=== PATIENT | male | born 1955 | race Caucasian/White ===

== ENCOUNTER 2025-02-09 19:46 | Emergency (ER) | payer MEDICARE, SELFPAY ==
--- NOTE | ~2025-02-09 | CT_ITS ---
CT cervical spine wo con Ordering provider: Tari De Santiago MD History: . fall . Comparison: None. Technique: CT of the cervical spine was performed without contrast. Sagittal and coronal reformatted images were also obtained and reviewed. Automated exposure control and iterative reconstruction da hnique were employed. The dose-length product was 476.08 mGy-cm. FINDINGS: VERTEBRAE: No subluxation or acute fracture. The occipital condyles are intact. Degenerative changes of the spine. DISC SPACES: Narrowing of the disc C6-C7. Multilevel facet joint disease. Multilevel uncovertebral christel int osteoarthritic changes. Multilevel intervertebral foraminal narrowing. PARASPINOUS SOFT TISSUES: Bilateral carotid atherosclerotic changes. IMPRESSION: No acute osseous abnormality cervical spine. Degenerative disc disease at the level of C6-C7. Reviewed, dictated and finalized at location A.
--- NOTE | ~2025-02-09 | CT_ITS ---
CT brain wo con Ordering provider: Tari De Santiago MD History: 69 years Male with . fall . Comparison: None. Technique: CT of the head without contrast. Radiation reduction technique utilized.The dose-length product was 983.6-7 mGy-cm. FINDINGS: BRAIN PARENCHYMA AND CSF SPACES: Mild leukoaraiosis and diffuse cortical atrophy. Mild atheromatous d isease. No midline shift, mass effect or hemorrhage. The brain parenchyma and CSF spaces are otherwi se normal. VISUALIZED PARANASAL SINUSES: Bilateral maxillary sinus disease. Well aerated. MASTOIDS: Well aerated. BONES: The bones appear intact. SOFT TISSUES: Visualized nasopharynx is normal. Superficial soft tissues are normal. IMPRESSION: No acute intracranial findings. Reviewed, dictated and finalized at location A.
[2025-02-09 19:51] VITALS: BP 99/65; PULSE 66; RESP 18; O2SAT 97
--- NOTE | 2025-02-09 19:51 | ECG_ITS ---
Test Date: 2025-02-09 20:02:28 Measurements Intervals Manning Rate: 62 P: 28 NC: 197 QRS: -88 QRSD: 173 T: 35 QT: 454 QTc: 462 Interpretive Statements SINUS RHYTHM LEFT AXIS DEVIATION [QRS AXIS < -30] RIGHT BUNDLE BRANCH BLOCK [120+ ms QRS DURATION, UPRIGHT V1, 40+ ms S IN I/aVL/V4/V5/V6] PROBABLE SEPTAL MYOCARDIAL INFARCTION , PROBABLY OLD [35 ms Q WAVE IN V1/V2] No previous ECG available for comparison Electronically Signed On 02-10-2025 10:08:43 CDT by Chucky Oneill M.D.
[2025-02-09 19:55] VITALS: TEMP 36.1
[2025-02-09 20:16] VITALS: BP 101/70
--- NOTE | 2025-02-09 20:20 | PC.NURSE ---
Patient very eager to leave the ER. Discussed at length the need for imaging and to monitor his BP. Patient is impatient and reluctant to cooperate with treatment. Pt is on bed alarm and already attempted to exit his bed.
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
[2025-02-09 20:37] VITALS: BP 118/65
--- OUTSIDE RECORDS SUMMARY | 2025-02-09 20:43 | XMS_ITS | Clinical Summary ---
Author Organization [facility] [place] [address] [facility] [place] [address] Care Team Providers Care Guidance Director Name Role Phone Hari Yeboah MD Primary Care Provider [phone] Allergies No known active allergies Medications amLODIPine (NORVASC) 10 mg tablet amlodipine 10 mg tablet TAKE 1 TABLET BY MOUTH ONCE DAILY Active busPIRone (BUSPAR) 10 mg tablet buspirone 10 mg tablet TAKE 1 TABLET BY MOUTH TWICE DAILY NEEDED Active fenofibrate nanocrystallized (TRICOR) 145 mg tablet fenofibrate nanocrystallized 145 mg tablet TAKE 1 TABLET BY MOUTH ONCE DAILY DIRECTED Active fluticasone propionate (FLONASE) 50 mcg/actuation nasal spray daily Active metoprolol XL (TOPROL-XL) 100 mg 24 hr tablet metoprolol succinate ER 100 mg tablet,extended release 24 hr TAKE 1 TABLET BY MOUTH ONCE DAILY Active rosuvastatin (CRESTOR) 40 mg tablet rosuvastatin 40 mg tablet TAKE 1 TABLET BY MOUTH ONCE DAILY Active azithromycin (ZITHROMAX) 250 mg tablet Take 2 tabs (500 mg) by mouth today, than 1 tab (250 mg) daily for 4 days. 6 tablet 022 Active Active Problems Problem Noted Date Diagnosed Date Smoker 08/10/2022 Sinusitis 08/10/2022 Polyp of colon 08/10/2022 Hyperlipidemia 08/10/2022 Essential hypertension 08/10/2022 Alcohol abuse 08/10/2022 Expiratory wheezing 05/07/2022 Anxiety 05/07/2022 Allergic rhinitis 05/07/2022 Hypertriglyceridemia 02/27/2021 Erectile dysfunction 02/27/2021 Immunizations Immunization Administration Dates Next Due Pneumococcal Conjugate PCV 13 05/07/2022 Social History Tobacco Use Types Packs/Day Years Used Date Smoking Tobacco: Every Day Cigarettes Smokeless Tobacco: Never Tobacco Cessation:Ready to Q uit: Not Asked; Counseling Given: Not Answered Personal Safety Answer Date Recorded Getting School Help Needed Not on file 09/25 Sex and Gender Information Value Date Recorded Sex Assigned at Not on file Legal Sex 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 Gender Identity Not on file Sexual Orientation Not on file Obstetrics History Last Filed Vital Signs Vital Sign Reading Time Taken Comments Blood Pressure 168/83 08/10/2022 2:17 PM ADMINISTRATION INTERN Pulse 95 08/10/2022 2:17 PM ADMINISTRATION INTERN Temperature 37.9 C (100.2 F) 08/10/2022 2:17 PM ADMINISTRATION INTERN Respiratory Rate 16 08/10/2022 2:17 PM ADMINISTRATION INTERN Oxygen Saturation 95% 08/10/2022 2:17 PM ADMINISTRATION INTERN Inhaled Oxygen Concentration - - Weight 87.9 kg (193 lb 12.8 oz) 08/10/2022 2:17 PM ADMINISTRATION INTERN Height - - Body Mass Index - - Plan of Treatment Health Maintenance Due Date Last Done Comments Colon Cancer Screening-Colonoscopy 1957 Depression Screening 1957 Fall Risk Assessment 1957 Hepatitis C Screening 1957 Prostate Cancer Screening-PSA 1957 DTaP/Tdap/Td Vaccine (1 - Tdap) 1968 Hepatitis B Screening 1975 Zoster Vaccine (1 of 2) 2007 Abdominal Aortic Aneurysm (A AA) Screen 2022 Well Visit 65+ 2022 Pneumococcal vaccine 65+ (2 of 2 - PPSV23) 07/02/2022 05/07/2022 Covid-19 Vaccine ( season) 2024 09/15/2021, 12/19/2020, 11/28/2020 Influenza Vaccine (Season Ended) 2025 Insurance [address] [place] [id number] [facility] H[facility] REF Care Teams Guidance Director Relationship Specialty Start Date End Date Hari Yeboah MD PCP - General Internal Medicine 08/10/22
--- OUTSIDE RECORDS SUMMARY | 2025-02-09 20:43 | XMS_ITS | Referral Summary ---
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 Gender Identity Not on file Sexual Orientation Not on file Last Filed Vital Signs Vital Sign Reading Time Taken Comments Blood Pressure 168/83 08/10/2022 2:17 PM STATISTICAL METHODS PROFESSOR Pulse 95 08/10/2022 2:17 PM STATISTICAL METHODS PROFESSOR Temperature 37.9 C (100.2 F) 08/10/2022 2:17 PM STATISTICAL METHODS PROFESSOR Respiratory Rate 16 08/10/2022 2:17 PM STATISTICAL METHODS PROFESSOR Oxygen Saturation 95% 08/10/2022 2:17 PM STATISTICAL METHODS PROFESSOR Inhaled Oxygen Concentration - - Weight 87.9 kg (193 lb 12.8 oz) 08/10/2022 2:17 PM STATISTICAL METHODS PROFESSOR Height - - Body Mass Index - - Plan of Treatment Not on file [id number] H[address] REF 1941 [place] [id number] [facility] HMO REF Care Teams Refuse Collector Supervisor Relationship Specialty Start Date End Date Hari Yeboah MD PCP - General Internal Medicine 08/10/22
--- OUTSIDE RECORDS SUMMARY | 2025-02-09 20:44 | XMS_ITS | Data Portability ---
Author Organization [facility], Main Office Address [address] [place] [address] Assessment No assessment recorded. Plan of Treatment Reminders Order Date Submit Date Provider Last Modified By Organization Details Last Modified Time Details Appointments Any 15 2024 02:00P M Hari Yeboah MD Not available Not available Not available Lab CBC w/ auto diff 2024 025 [email or web address] [facility], Svet[address] Juan, [place], [address], 12/07/2024 12:28:58 lipid panel, serum 2024 025 ERIK [facility], [address]vetlana Juan, [place], [address], 12/07/2024 10:38:26 PSA, serum or plasma 2024 025 [email or web address] [facility], [address] Juan, [place], [address], 12/07/2024 12:29:06 CMP, serum or plasma 2024 025 [email or web address] [facility], [address]vetlana Juan, [place], [address], 12/07/2024 12:28:49 PSA, serum or plasma [address] (Lab), [address] [place], [address], 02/22/2023 08:08:34 CMP, serum or plasma [address] (Lab), [address] [place], [address], 02/22/2023 08:08:34 lipid panel, serum [address] (Lab), [address] [place], [address], 02/22/2023 08:08:34 Referral None recorded. Procedures None recorded. Surgeries None recorded. Imaging LDCT, chest, for lung cancer screening [email or web address] ([facility]), [address] [place], [address], 12/04/2024 17:55:39 LDCT, chest, for lung cancer screening [email or web address] [place] [address], [address] [place] [address] [address], [place], [address], 01/17/2024 09:20:35 LDCT, chest, for lung cancer screening [email or web address], [address] [place] [address] [address], [address], [place], [address], 02/22/2023 08:10:56 Medication Orders olmesarta n 40 mg-hydroc hlorothia zide 25 mg tablet 2024 025 [facility] [address], [address] [place], [address], 12/03/2024 15:53:33 sertralin e 50 mg tablet 2024 025 [facility] [address], [address] [place], [address], 12/03/2024 15:53:32 olmesarta n 20 mg tablet 2023 024 [facility] [address], [address], [place], [address], 01/09/2024 12:36:32 amlodipin e 10 mg tablet 2023 024 [facility] [address], [address], [place], [address], 01/09/2024 12:52:06 metoprolo l succinate ER 100 mg tablet,ex tended release 24 hr 2023 024 [facility] [address], [address], [place], [address], 01/09/2024 12:36:34 buspirone 10 mg tablet 2023 024 [facility] [address], [address], [place], [address], 01/09/2024 12:36:34 metoprolo l succinate ER 100 mg tablet,ex tended release 24 hr 2022 023 [facility] [address], [address], [place], [address], 01/17/2023 12:39:13 amlodipin e 10 mg tablet 2022 023 [facility] [address], [address], [place], [address], 01/17/2023 12:39:15 fenofibra te nanocryst allized 145 mg tablet 2022 023 [facility] [address], [address], [place], [address], 01/17/2023 12:39:12 rosuvasta tin 40 mg tablet 2022 023 [facility] [address], [address], [place], [address], 01/17/2023 12:39:13 Patient TargetsNo targets recorded. Patient InstructionsNo instructions recorded. Reason for Referral None Reported. Results Created Date Observation Date Name Description Value Unit Range Abnormal Flag Note LastModifiedBy Organization Detail LastModifiedTime 12/11/1912/08/2024 LDCT, chest , for lung cance r scree devaughn No observ ation record ed. [email or web address] [facility] (Imaging) [address], [place], [address], 12/13/2024 15:35:02 12/12/19 25 12/10/2024 LDCT, chest , for lung cance r scree devaughn No observ ation record ed. [facility] [address] [facility] [address], [place], [address], 12/11/2024 14:33:30 Result Notes None recorded. Problems Name Problem SNOMED Code Status Onset Date Resolution Date Notes Provider Name and Address Organization Details Recorded Time Skin lesion 50654839 Active 2022 Hari Yeboah MD [address] [facility] [address], [place], [address] , [employer] 3 12:40:42 Acute bronchitis 48058932 Completed Not Available [facility] 3 03:21:50 Harmful pattern of use of alcohol 28319497 Active Not Available [employer] 3 03:21:51 Adult health examinatio n Active 2020 Not Available [facility] 3 03:21:51 Hypertrigl yceridemia 759594874 Active 2020 Not Available [facility] 3 03:21:51 Sinusitis 58250520 Active Not Available [facility] 3 03:21:51 Anxiety 86296248 Active 2021 FLAVIA Best, [employer] 3 07:31:37 Hyperlipid emia 24513482 Active Not Available [facility] 3 03:21:51 Essential hypertensi on 97880561 Active Not Available [facility] 3 03:21:51 Allergic rhinitis 06896513 Active 2021 Rocio resendiz, RMA null, [place] test [employer] [facility] [employer] [facility] 3 07:31:34 Polyp of colon 09185171 Active Not Available [facility] 3 03:21:51 Smoker 65692290 Active Not Available [facility] 3 03:21:51 Erectile dysfunctio n 916832631 Active 2020 Not Available [facility] 3 03:21:51 Expiratory wheezing 7156582 Completed 202112/27/2022 Rocio resendiz, RMA null, [facility] [employer] [facility] 3 07:31:40 Acute sinusitis 08906034 Active 2023 Sheryl Henry LPN null, [facility] [employer] [facility] 4 14:11:44 Depressive disorder 33543875 Active 2024 Hari Yeboah MD [address], [address] , [facility] [employer] [facility] 5 15:52:48 Tremor 80099064 Active 2024 Hari Yeboah MD [address] [facility], [place] [address], [place], [address] , [facility] [employer] [facility] 5 15:55:58 Nicotine dependence 71940191 Active 2024 Susan Dave MA null, [facility] [employer] [facility] 5 17:54:36 Problem Notes None recorded. Procedures Surgical History Date Name Laterality Status Provider Name and Address Organization Details Recorded Time Orthopedic Surgery completed Not Available [facility] 11/17/2022 03:14:20 Imaging Results None recorded. Procedure Notes None recorded. Medical Equipment None Reported. Medications Name Sig Start Date Stop Date Status Note LastModified by Organization Details LastModified Time amoxicillin 500 mg capsule TAKE 1 CAPSULE BY MOUTH THREE TIMES DAILY 12/03 completed Not Available Not Available Not Available azithromyci n 250 mg tablet TAKE 2 TABLETS BY MOUTH ON DAY 1, AND THEN TAKE 1 TABLET BY MOUTH ONCE A DAY ON DAY 2 THROUGH DAY 5 01/17 completed Not Available Not Available Not Available Viagra 50 mg tablet Take 1 tablet as needed by oral route as needed. active Not Available Not Available No t Available metoprolol succinate ER 100 mg tablet,exte nded release 24 hr TAKE 1 TABLET BY MOUTH ONCE DAILY active Not Available Not Available No t Available amlodipine 10 mg tablet TAKE 1 TABLET BY MOUTH ONCE DAILY active Not Available Not Available No t Available gemfibrozil 600 mg tablet TAKE 1 TABLET BY MOUTH TWICE A DAY 07/19 completed Not Available Not Available Not Available Norvasc 5 mg tablet Take 1 tablet every day by oral route. 01/31 completed Not Available Not Available Not Available buspirone 10 mg tablet TAKE 1 TABLET BY MOUTH TWICE DAILY NEEDED active Not Available Not Available No t Available lisinopril 20 mg-hydrochl orothiazide 25 mg tablet Take 1 tablet twice a day by oral route. 12/29 completed Not Available Not Available Not Available furosemide 20 mg tablet Take 1 tablet every day by oral route in the morning. active Not Available Not Available No t Available levofloxaci n 500 mg tablet TAKE 1 TABLET BY MOUTH EVERY 24 HOURS FOR 7 DAYS 08/27 completed Not Available Not Available Not Available methylpredn isolone 4 mg tablets in a dose pack TAKE BY MOUTH DIRECTED ON INSIDE OF PACKAGE 08/27 completed Not Available Not Available Not Available albuterol sulfate HFA 90 mcg/actuati on aerosol inhaler Inhale 2 puffs every 4 hours by inhalatio n route for 30 days. 07/01 completed Not Available Not Available Not Available fluticasone propionate 50 mcg/actuati on nasal spray,suspe nsion [place] 2 sprays every day by intranasa l route. active Not Available Not Available No t Available sertraline 50 mg tablet TAKE 1 TABLET BY MOUTH ONCE DAILY active Not Available Not Available No t Available doxycycline hyclate 100 mg tablet TAKE 1 TABLET BY MOUTH TWICE A DAY 03/26 completed Not Available Not Available Not Available amoxicillin 875 mg-potassiu m clavulanate 125 mg tablet TAKE 1 TABLET BY MOUTH TWICE DAILY FOR 7 DAYS 01/17 completed Not Available Not Available Not Available olmesartan 20 mg tablet Take 1 tablet by mouth once daily active Not Available Not Available No t Available amlodipine 10 mg-benazepr il 20 mg capsule TAKE 1 CAPSULE BY MOUTH ONCE DAILY 06/18 completed Not Available Not Available Not Available olmesartan 40 mg-hydrochl orothiazide 25 mg tablet Take 1 tablet every day by oral route. 2024 active Not Available Not Available Not Avai lable rosuvastati n 40 mg tablet Take 1 tablet by mouth once daily 2024 active CHUY NOV ok to rf Not Available Not Available Not Available Chantix 1 mg tablet Take 1 tablet twice a day by oral route. 07/01 completed Not Available Not Available Not Available fenofibrate nanocrystal lized 145 mg tablet TAKE 1 TABLET BY MOUTH ONCE DAILY DIRECTED active Not Available Not Available No t Available Vitals Date Recorded Body weight Body mass index (BMI) Body height Body temperature Heart rate Oxygen saturation Oxygen saturation in Arterial blood by Pulse oximetry Systolic And Diastolic Provider Name and Address Organization Details Last Updated DateTime 5 52020 g 29.7 kg/m2 167.64 cm 97.6 [degF] 88 /min 94 % 94 % 162/84 mm[Hg] Rocio bernard [facility] [employer] [facility] 5 15:23:42 Date Recorded Body height Body mass index (BMI) Body weight Body temperature Heart rate Oxygen saturation Oxygen saturation in Arterial blood by Pulse oximetry Systolic And Diastolic Provider Name and Address Organization Details Last Updated DateTime 4 167.64 cm 31.3 kg/m2 45371.9 2 g 97.7 [degF] 94 /min 96 % 96 % 160/80 mm[Hg] Rocio bernard [facility] [employer] [facility] 4 12:09:14 Date Recorded Body height Body mass index (BMI) Body weight Body temperature Heart rate Oxygen saturation Oxygen saturation in Arterial blood by Pulse oximetry Systolic And Diastolic Provider Name and Address Organization Details Last Updated DateTime 3 167.64 cm 30.5 kg/m2 50460.9 6 g 98.2 [degF] 78 /min 97 % 97 % 122/80 mm[Hg] Yaimla Oliva [facility] [employer] [facility] 3 11:54:50 Date Recorded Body mass index (BMI) Body height Oxygen saturation Oxygen saturation in Arterial blood by Pulse oximetry Heart rate Body weight Systolic And Diastolic Provider Name and Address Organization Details Last Updated DateTime 2 30.5 kg/m2 167.64 cm 97 % 97 % 86 /min 87521.9 6 g 130/80 mm[Hg] Not Available [facility] 3 03:16:44 Date Recorded Body weight Body mass index (BMI) Body height Body temperature Heart rate Oxygen saturation Oxygen saturation in Arterial blood by Pulse oximetry Systolic And Diastolic Provider Name and Address Organization Details Last Updated DateTime 3 52705.7 4 g 31 kg/m2 167.64 cm 97.6 [degF] 79 /min 97 % 97 % 164/80 mm[Hg] FLAVIA Lowry [facility] 3 12:19:59 Social History Question Answer Notes LastModified by [employer] Details LastModified Time Tobacco Smoking Status Current Every Day Smoker 1-2 a day, vapes more Not Available [facility] 11/17/2022 03:02:41 Do You Have An Advance Directive? Yes [id number] Information not available 11/17/2022 What Is Your Level Of Caffeine Consumption? None [id number] Information not available 11/17/2022 How Much Tobacco Do You Chew? None [id number] Information not available 11/17/2022 What Type Of Diet Are You Following? REGULAR [id number] Information not available 11/17/2022 Which Illicit Or Recreational Drugs Have You Used? None [id number] 2012 Information not available 11/17/2022 What Was The Date Of Your Most Recent Tobacco Screening? 02/27/2021 [id number] Information not available 11/17/2022 At What Age Did You Start Smoking Tobacco? 24 [id number] Information not available 11/17/2022 How Much Tobacco Do You Smoke? 1 PPW MIGRATION.[id number] 8423 Information not available 11/17/2022 Do You Use Sunscreen Routinely? No [id number] Information not available 11/17/2022 Sex: Male Functional Status Question Answer Note LastModified by [employer] Details LastModified Time What is your level of alcohol consumption? Occasional 2-3 beers per day [id number] Information not available 11/17/2022 Do you or have you ever used smokeless tobacco? Never used smokeless tobacco MIGRATION.[id number] 1829 Information not available 11/17/2022 What is your occupation? sales MIGRATION.[id number] 0989 Information not available 11/17/2022 Do you or have you ever used e-cigarettes or vape? Current user of electronic cigarettes MIGRATION.[id number] 1011 Information not available 11/17/2022 What is your exercise level? None [id number] Information not available 11/17/2022 Mental Status None recorded. Family History Relationship Description Onset Age of this Age Resolved Age Notes LastModified by Organization Details LastModified Time Father Heart disease [id number] Not available 11/17/2022 03:14:22 Father Essential hypertension [id number] Not available 11/17/2022 03:14:23 Medical History No medical history recorded. Immunizations Vaccine Type Date Status Note Provider Nam e and Address Organization Details Recorded Time Pneumococcal conjugate PCV 13 2 completed Not Available [employer] 11/17/2022 03:33:51 pneumococcal polysaccharide PPV23 4 completed FLAVIA Quiñonez [place] [employer] 01/09/2024 16:38:19 Past Encounters Encounter ID Performer Location Encounter Start Date Encounter Closed Date Diagnosis/Indication Diagnosis SNOMED-CT Code Diagnosis ICD10 Code Diagnosis Note [id number] MD HERBERT Mcginnis[facility] [address] [place] [address] 02/27/2021 00:00:00 02/27/2021 13:31:21 [id number] MD FLORA Mcginnis [facility] [address] [place] [address] 09/21/2021 00:00:00 09/21/2021 12:56:51 [id number] MD FLORA Mcginnis [facility] [address] [place] [address] 05/07/2022 00:00:00 05/07/2022 13:55:05 [id number] MD HERBERT Mcginnis_MARYA Internal [facility] [address] [place] [address] 01/17/2023 11:38:43 01/17/2023 12:45:39 Essential hypertension 94512205 I10 under control Hyperlipidemia 05154835 E78.5 labs Erectile dysfunction 860 987402 F52.21 viagra prn Smoker 81423990 F17.200 advised to quit, needs LDCT was ordered, willing to get Hypertriglyceridemia 302 502334 E78.1 on meds Harmful pa ttern of use of alcohol 60101665 F10.10 advised to quit Anxiety 79977491 F41.9 better with prn meds Allergic rhinitis 850633 04 J30.9 ot Adult [facility] th examination 882593932 Z00.00 Colonoscop y- 06/2012PSA - 03/09, orderedPne umovax- 23 next yearPrevna r 13 in 05/10COVID- Has had both pfizer inj Screening for malignant neoplasm of prostate 617131872 Z12.5 Skin lesion 14419345 L98 .[address] suresh [id number] Hari Yeboah MD [facility] Internal [facility] [address] [place] [address] 05/20/2023 11:50:58 05/20/2023 12:43:49 Essential hypertension 63494020 I10 not under control , rechecked and still high, will recheck in a week Hyperlipidemia 15092249 E78.5 labs good Erectile dysfunction 860 569493 F52.21 viagra prn Smoker 32323328 F17.200 advised to quit, needs LDCT was ordered, still not done Hypertriglyceridemia 302 696903 E78.1 on meds Harmful pa ttern of use of alcohol 83632436 F10.10 advised to quit Anxiety 25251081 F41.9 restart prn meds Allergic rhinitis 414161 04 J30.9 ot Adult heal th examination 855811987 Z00.00 Colonoscop y- 06/2012PSA - nl 05/11Pneumo vax- 23 next timePrevna r 13 in 05/10COVID- Has had both pfizer inj Skin lesion 22685327 L98 .[address] suresh, discussed [id number] Hari Yeboah MD [facility] Internal [facility] [address] [place] [address] 01/09/2024 11:43:15 01/09/2024 12:42:53 Essential hypertension 68338142 I10 add olmesartan Hyperlipidemia 44986189 E78.5 labs good Erectile dysfunction 860 289618 F52.21 no meds needed Smoker 82253981 F17.200 advised to quit, needs LDCT was ordered, still not done Hypertriglyceridemia 302 920799 E78.1 on meds Harmful pa ttern of use of alcohol 02839538 F10.10 advised to quit Anxiety 00457410 F41.9 restart prn meds Allergic rhinitis 063625 04 J30.9 otc Adult heal th examination 754042089 Z00.00 Colonoscop y- 06/2012 . wants to waitPSA- nl 05/11Pneumo vax- 23 todayPrevn ar 13 in 05/10COVID- Has had both pfizer inj Skin lesion 29132686 L98 .[address] suresh, discussed again Administra tion of pneumococcal vaccine 59499117 Z23 [id number] Hari Yeboah MD [facility] Internal [facility] [address] [place] [address] 12/03/2024 15:19:18 12/03/2024 16:14:28 Essential hypertension 24241774 I10 ^ the dose of olmesartan Hyperlipidemia 09322359 E78.5 labs good Erectile dysfunction 860 293161 F52.21 no meds needed Smoker 96813485 F17.200 advised to quit, needs LDCT was ordered, still not done Hypertriglyceridemia 302 507105 E78.1 on meds Harmful pa ttern of use of alcohol 69900043 F10.10 advised to quitlong discussion with him and his daughter, advised to go to rehab Anxiety 47740089 F41.9 start meds Allergic rhinitis 028946 04 J30.9 otc Skin lesion 37995692 L98 .[address] suresh, discussed again Adult heal th examination 974406630 Z00.00 Colonoscop y- 06/2012 . wants to waitPSA- nl 05/11LDCT- was Reordered, not getting itPneumova x- 23 01/09/2024 Prevnar 13 in 05/07/22COV ID- Has had both pfizer inj Screening for malignant neoplasm of prostate 739917889 Z12.5 Depressive disorder 3548 9007 F32.A Tremor 44887642 R25.1 alcohol related Health Concerns Section Related Observation LastModified by Organization Detai ls LastModified Time None Recorded Concern Status LastModified by Organization Details LastModified Time None Recorded Advance Directives Directive Y: Payers Encounter Date Sequence Insurance Name Policy Number Policy Bermudez Covered Member ID Bermudez Member ID Guarantor Name 01/17/2023 1 [facility] (MEDICARE REPLACEMENT/A DVANTAGE - HMO) [id number] Brando Christian [id number] Brando Christian 01/17/2023 2 [place] Brando Christian [id number] Brando Christian 05/20/2023 1 [facility] (MEDICARE REPLACEMENT/A DVANTAGE - HMO) [id number] Brando Christian [id number] Brando Christian 05/20/2023 2 [place] Brando Christian [id number] Brando Christian 01/09/2024 1 [facility] (MEDICARE REPLACEMENT/A DVANTAGE - HMO) [id number] Brando Christian [id number] Brando Christian 01/09/2024 2 [place] Brando Christian [id number] Brando Christian 12/03/2024 1 [facility] (MEDICARE REPLACEMENT/A DVANTAGE - HMO) [id number] Brando Christian [id number] Brando Christian Notes Date Note Type Note Provider Name and Address Organization Details Recorded Time 01/17/2023 text/html Doing fine, compliant to medications, no side affects, here for follow up.HTN- bp is under control.Meds- Amlodipine 10 mg daily, Metoprolol 100 mg dailyHyperlipidemi a/ Hypertriglyceridem ia- taking med, watching diet, labs good 03/09Meds- Fenofibrate 145 mg daily and Rosuvastatin 40 mg dailyAnxiety- Uses Buspirone 10 mg BID,Still smokes , willing to quit, has cut downDrinks wine Hari Yeboah MD [address], [place], [address], [employer] [facility] 01/17/2023 12:41:13 05/20/2023 text/html Doing fine, compliant to medications, no side affects, here for follow up.HTN- bp is a high today, 164/80Meds- Amlodipine 10 mg daily, Metoprolol 100 mg daily Hyperlipidemia/ Hypertriglyceridem ia- taking med, watching diet, labs neededMeds- Fenofibrate 145 mg daily and Rosuvastatin 40 mg dailyAnxiety-getti ng worse, was on Buspirone 10 mg BID, will restart , does not need rxStill smokes , willing to quit, has cut downDrinks wine, 3-4 glasses a day Hari Yeboah MD [address], [place], [address], [employer] [facility] 05/20/2023 12:40:28 01/09/2024 text/html Doing fine, compliant to medications, no side affects, here for follow up.HTN- bp is a high today, 160/80Meds- Amlodipine 10 mg daily, Metoprolol 100 mg daily Hyperlipidemia/ Hypertriglyceridem ia- taking med, watching diet, labs neededMeds- Fenofibrate 145 mg daily and Rosuvastatin 40 mg dailyAnxiety-getti ng worse, was on Buspirone 10 mg BID, needs itStill smokes , willing to quit, has cut downDrinks wine, 3-4 glasses a day All rhinitis- on otc Hari Yeboah MD [address], [place], [address], [employer] [facility] 01/09/2024 13:10:08 12/03/2024 text/html Doing fine, compliant to medications, no side affects, here for follow up.PT IS NOT FASTING ( [facility]/Medicare )HTN- bp is a high today, 162/84Meds- Amlodipine 10 mg daily, Metoprolol 100 mg daily, Olmesartan 20mg daily Hyperlipidemia/ Hypertriglyceridem ia- taking med, watching diet, labs dueMeds- Fenofibrate 145 mg daily and Rosuvastatin 40 mg dailyAnxiety-getti ng worse, was on Buspirone 10 mg BID, needs its, Daughter thinks he is clinical depressed, He just does not care about anything. Denies any self harm just doesnt feels like himself.Still smokes , willing to quit, has cut downDrinks wine, 3-4 glasses a day All rhinitis- on otc Hari Yeboah MD [address] [facility], [facility] [address], [place], [address], [place] [facility] [employer] 12/03/2024 16:09:51
[2025-02-09 20:46] LABS: Basophils Percent Auto 0.5 % (0.2-1.2); Eosinophils Absolute Auto 0.1 K/mm3 (0-0.3); Eosinophils Percent Auto 0.8 % (0-4.4); Hematocrit 40.3 % (42.0-52.0); Hemoglobin 13.4 g/dL (14.0-18.0); Immature Granulocyte Absolute 0.03 K/mm3 (0.00-0.031); Immature Granulocyte Percent A 0.4 % (0-0.5); Lymphocytes Absolute Auto 1.89 K/mm3 (0.9-3.2); Lymphocytes Percent Auto 22.1 % (18.3-44.2); Mean Corpuscular HGB Conc 33.3 g/dl (32-36); Mean Corpuscular Hemoglobin 31.7 pg (26-34); Mean Corpuscular Volume 95.3 fl (80-100); Mean Platelet Volume 10.5 fl (7.4-10.4); Monocytes Absolute Auto 0.7 K/mm3 (0.1-0.6); Monocytes Percent Auto 8.6 % (2.6-8.5); Neutrophils Absolute Auto 5.8 K/mm3 (1.3-6.7); Neutrophils Percent Auto 67.6 % (45.5-73.1); Platelet Count Result 157 k/mm3 (150-375); Red Blood Count 4.23 M/mm3 (4.6-6.20); Red Cell Distribution Width 12.5 % (11.5-14.5); White Blood Count 8.6 K/mm3 (4.5-10.0)
[2025-02-09 20:55] LABS: Alanine Aminotransferase 53 U/L (6-50); Albumin Level 4.4 g/dL (3.5-5.1); Alkaline Phosphatase 25 U/L (38-126); Anion Gap 15 mmol/L (4-12); Aspartate Amino Transferase 67 U/L (17-59); Bilirubin,Total 0.4 mg/dL (0.2-1.3); Blood Urea Nitrogen 39 mg/dL (9-20); Calcium 9.7 mg/dL (8.4-10.2); Carbon Dioxide 21 mmol/L (22-30); Chloride 100 mmol/L (98-107); Estimated CRCL calculation 30 ml/min; Estimated Glomerular Filt Rate 30; Glucose 96 mg/dL (65-110); Potassium 3.7 mmol/L (3.4-5.0); Sodium 136 mmol/L (137-145)
[2025-02-09 20:57] LABS: Ethanol 221 mg/dL (<10)
[2025-02-09 21:08] LABS: INR 1.1; Prothrombin Time 14.3 Seconds (11.1-14.7)
[2025-02-09 21:09] LABS: Partial Thromboplastin Time 30.2 Seconds (22.3-36.8)
[2025-02-09] MEDS: SODIUM CHLORIDE 0.9% IV 1,000 ML 999 ML IV CONT (21:13)
[2025-02-09] MEDS: Please add drug allergy info to patient profile. 1 EACH XX (21:22)
[2025-02-09 21:24] VITALS: BP 110/60
[2025-02-09 21:52] LABS: Add Urine Microscopic? YES; Appearance Urine Clear (Clear); Bacteria Urine None Seen /hpf; Bilirubin Urine Negative (Negative); Blood Urine Negative (Negative); Color Urine Yellow (Yellow); Glucose Urine UA Trace mg/dL (Negative); Ketones Urine Negative (Negative); Leukocyte Esterase Ur Negative LEU/UL (Negative); Nitrate Urine Negative (Negative); Protein Urine Trace mg/dL (Negative); RBC Urine 0-2 /hpf (0-2); Specific Grav Ur 1.012 (1.001-1.035); Squamous Epithelial Cell Urine None Seen /hpf (Few); Urobilinogen Urine 0.2 mg/dL (<2.0); WBC Urine 0-5 /hpf (0-3); pH Urine 6.5 (5.0-9.0)
[2025-02-09 22:28] VITALS: BP 122/74; PULSE 81; RESP 18; O2SAT 98
== END 2025-02-09 22:29 | disposition home or self-care (01) ==
PROVIDERS: Emergency Provider Student in an Organized Health Care Education/Training Program
DX: S00.01XA Abrasion of scalp, initial encounter (principal); W18.30XA Fall on same level, unspecified, initial encounter; F10.129 Alcohol abuse with intoxication, unspecified; Y90.7 Blood alcohol level of 200-239 mg/100 ml; N17.9 Acute kidney failure, unspecified; R74.01 Elevation of levels of liver transaminase levels; I10 Essential (primary) hypertension; G89.29 Other chronic pain; I45.10 Unspecified right bundle-branch block; D64.9 Anemia, unspecified; M50.30 Other cervical disc degeneration, unspecified cervical region
CPT/HCPCS: 36415; 70450; 72125; 80053; 81001; 82077; 85025; 85610; 85730; 93005; 96360; 99284; J7030

== ENCOUNTER 2025-09-06 13:25 | Outpatient (CLI) | payer MEDICARE, SELFPAY ==
--- NOTE | ~2025-09-06 | CT_ITS ---
EXAMINATION: CT sinus wo con DATE: 09/06/2025 13:44 INDICATION: Chronic sinusitis TECHNIQUE: Computed tomography (CT) of the paranasal sinuses was performed without intravenous contrast. The dose-length product was 303.98 mGy-cm. Automated exposure control and iterative reconstruction technique were employed. COMPARISON: CT dated 02/09/2025 FINDINGS: There is mucosal thickening of the frontal, ethmoid and maxillary sinuses. No air-fluid levels are present. There is dental Kristy of the right second molar. Mastoids are pneumatized. Rightward nasal septal deviation. Mild hypertrophy of the inferior turbinates. IMPRESSION: 1. Mild-moderate sinus disease. Reviewed, dictated and finalized at location O. T [facility]
--- OUTSIDE RECORDS SUMMARY | 2025-09-06 13:30 | XMS_ITS | Clinical Summary ---
Author Organization [facility] Address [address] [place] [address] Care Team Providers Care Clinic Charge Nurse Name Role Phone Unavailable Primary Care Provider Unavailabl e Encounters Date Type Department Care Team Description 08/12/2025 Telephone [facility] [address] [id number] Raad Holley MD Appointment Request from Last 3 Months Social History Tobacco Use Types Packs/Day Years Used Date Smoking Tobacco: Never Assessed Sex and Gender Information Value Date Recorded Sex Assigned at Not on file Legal Sex Male 6:29 PM CDT Gender Identity Not on file Sexual Orientation Not on file Plan of Treatment Upcoming Encounters Date Type Department Care Team (Late st Contact Info) Description 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 Office Visit [facility] Medical [facility] - [address] [place] [address] Raad Holley MD [address] [place] [address] [id number] Health Maintenance Due Date Last Done Comments Colorectal Cancer Screening Colonoscopy (10 Years) 1957 Hepatitis C 1975 DTaP, Tdap and Td Vaccines ( 1 - Tdap) 1976 Pneumococcal Vaccine: 50+ Ye ars (1 of 1 - PCV) 2007 Zoster Vaccines (1 of 2) 2007 PHQ-2 (Physician [place]) 09/19/2024 COVID-19 Vaccine (1 - 2024-2 6 season) 2025 Influenza Adult (#1) 2025 RSV Immunization or 60+ Years (1 - 1-dose 75+ series) 2032 Hepatitis A Vaccines Aged Out No long er eligible based on patient's age to complete this topic Meningococcal B Vaccine Aged Out No l onger eligible based on patient's age to complete this topic Meningococcal Vaccine Aged Out No meghna dwaine eligible based on patient's age to complete this topic RSV Immunizations Under 20 Months Aged Out No longer eligible based on patient's age to complete this topic Insurance [employer]
--- OUTSIDE RECORDS SUMMARY | 2025-09-06 13:30 | XMS_ITS | Clinical Summary ---
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 Gender Identity Not on file Sexual Orientation Not on file Last Filed Vital Signs Vital Sign Reading Time Taken Comments Blood Pressure 168/83 08/10/2022 2:17 PM SAFETY TEACHER Pulse 95 08/10/2022 2:17 PM SAFETY TEACHER Temperature 37.9 C (100.2 F) 08/10/2022 2:17 PM SAFETY TEACHER Respiratory Rate 16 08/10/2022 2:17 PM SAFETY TEACHER Oxygen Saturation 95% 08/10/2022 2:17 PM SAFETY TEACHER Inhaled Oxygen Concentration - - Weight 87.9 kg (193 lb 12.8 oz) 08/10/2022 2:17 PM SAFETY TEACHER Height - - Body Mass Index - - Plan of Treatment Not on file Insurance 1941 [address] H[address] REF 1941 [place] [id number] [facility] HMO REF Care Teams Beer Brewer Relationship Specialty Start Date End Date Hari Yeboah MD PCP - General Internal Medicine 08/10/22
== END 2025-09-06 13:26 | disposition home or self-care (01) ==
PROVIDERS: PCP Anesthesiology; Visit Provider Otolaryngology
DX: J32.9 Chronic sinusitis, unspecified (principal)
CPT/HCPCS: 70486